=== PATIENT | female | born 1975 | race Caucasian/White ===

== ENCOUNTER 2016-09-06 08:07 | Emergency (ER) | payer OTHER, SELFPAY ==
[~2016-09-06] VITALS: Ht 167.6 cm; Wt 81.8 kg
[2016-09-06] MEDS ORDERED: LEVO75TA5 PO (08:56)
[2016-09-06] MEDS ORDERED: SODIUM CHLORIDE FLUSH 10ML SYR IVF ONE (09:30)
[2016-09-06] MEDS ORDERED: METOCLOPRAMIDE 5 MG/ML, 2ML IVPush ONE (09:30)
[2016-09-06] MEDS ORDERED: SODIUM CHLORIDE 0.9% 1,000ML IVBOLUS ONE (09:30)
[2016-09-06] MEDS ORDERED: DIPHENHYDRAMINE 50 MG/ML, 1ML IVPush ONE (09:30)
[2016-09-06 09:40] LABS: BLOOD UREA NITROGEN 15 mg/dL (7-18)
[2016-09-06] MEDS ORDERED: DIPHENHYDRAMINE 50 MG/ML, 1ML ONE (09:43)
[2016-09-06] MEDS ORDERED: METOCLOPRAMIDE 5 MG/ML, 2ML ONE (09:43)
[2016-09-06 11:43] VITALS: BP 124/73
== END 2016-09-06 11:46 | disposition home or self-care (01) ==
LOC: ED 11:09
DX: R51 Headache (principal); R11.0 Nausea; H53.149 Visual discomfort, unspecified
CPT/HCPCS: 36415; 70450; 80048; 82040; 85025; 93005; 96361; 96374; 96375; 99285; J1200; J2765; J7030

== ENCOUNTER 2017-04-05 20:04 | Emergency (ER) | payer OTHER, SELFPAY ==
[~2017-04-05] VITALS: Ht 162.6 cm; Wt 96.0 kg
[~2017-04-05 20:04] MED LIST: LEVO75TA5 PO
[2017-04-05] MEDS ORDERED: SODIUM CHLORIDE FLUSH 10ML SYR IVF ONE (20:30)
[2017-04-05] MEDS ORDERED: SODIUM CHLORIDE 0.9% 1,000ML IVBOLUS ONE (20:30)
[2017-04-05 20:39] LABS: HEMATOCRIT 42.3 % (34.6-47.8); HEMOGLOBIN 13.9 g/dL (11.7-16.4); WHITE BLOOD COUNT 11.3 x10^3/uL (3.4-10)
[2017-04-05 20:53] LABS: ASPARTATE AMINO TRANSFERASE 23 U/L (15-37); BLOOD UREA NITROGEN 27 mg/dL (7-18)
[2017-04-05] MEDS ORDERED: PROCHLORPERAZINE 5 MG/ML, 2ML ONE (21:28)
[2017-04-05] MEDS ORDERED: KETOROLAC 30 MG/1 ML ONE (21:28)
[2017-04-05] MEDS ORDERED: DIPHENHYDRAMINE 50 MG/ML, 1ML ONE (21:28)
[2017-04-05] MEDS ORDERED: KETOROLAC 30 MG/1 ML IVPush ONE (21:30)
[2017-04-05] MEDS ORDERED: DIPHENHYDRAMINE 50 MG/ML, 1ML IVPush ONE (21:30)
[2017-04-05] MEDS ORDERED: PROCHLORPERAZINE 5 MG/ML, 2ML IVPush ONE (21:30)
[2017-04-05 22:08] LABS: PATH.CAST-FLAG NOT PRESENT; SPERM-FLAG NOT PRESENT; SRC-FLAG NOT PRESENT; XTAL-FLAG NOT PRESENT; YLC-FLAG NOT PRESENT
[2017-04-05] MEDS ORDERED: PHENAZOPYRIDINE 200 MG TABLET PO ONE (22:30)
[2017-04-05] MEDS ORDERED: NITROFURANTOIN (MACROBID) 100 MG CAPSULE PO ONE (22:30)
[2017-04-05] MEDS ORDERED: NITROFURANTOIN (MACROBID) 100 MG CAPSULE ONE (22:36)
[2017-04-05] MEDS ORDERED: PHENAZOPYRIDINE 200 MG TABLET ONE (22:36)
[2017-04-05 23:31] VITALS: BP 133/67
== END 2017-04-05 23:33 | disposition home or self-care (01) ==
LOC: ED 23:30
DX: G43.911 Migraine, unspecified, intractable, with status migrainosus (principal); N30.00 Acute cystitis without hematuria; S09.90XA Unspecified injury of head, initial encounter; F17.210 Nicotine dependence, cigarettes, uncomplicated; X58.XXXA Exposure to other specified factors, initial encounter; Y93.89 Activity, other specified; Y92.89 Other specified places as the place of occurrence of the external cause; Y99.9 Unspecified external cause status
CPT/HCPCS: 36415; 70450; 80053; 81001; 84703; 85025; 87077; 87086; 87186; 93005; 96361; 96374; 96375; 99285; J0780; J1200; J1885; J7030

== ENCOUNTER 2017-04-18 20:46 | Emergency (ER) | payer MEDICAID, OTHER ==
[~2017-04-18] VITALS: Ht 162.6 cm; Wt 104.6 kg
[2017-04-18 20:48] VITALS: BP 126/89
== END 2017-04-18 23:01 | disposition left against medical advice (07) ==
LOC: ED 22:55
DX: G43.909 Migraine, unspecified, not intractable, without status migrainosus (principal); R50.9 Fever, unspecified

== ENCOUNTER 2017-10-21 07:09 | Emergency (ER) | payer MEDICAID ==
[~2017-10-21] VITALS: Ht 162.6 cm; Wt 109.9 kg
[2017-10-21 07:39] VITALS: BP 183/97
== END 2017-10-21 08:03 | disposition home or self-care (01) ==
LOC: ED 07:52
DX: S70.371A Other superficial bite of right thigh, initial encounter (principal); G43.909 Migraine, unspecified, not intractable, without status migrainosus; W55.01XA Bitten by cat, initial encounter; Y93.89 Activity, other specified; Y92.89 Other specified places as the place of occurrence of the external cause; Y99.8 Other external cause status
CPT/HCPCS: 99283

== ENCOUNTER 2018-03-13 14:12 | Emergency (ER) | payer MEDICAID ==
[~2018-03-13] VITALS: Ht 162.6 cm; Wt 120.0 kg
[2018-03-13 14:30] VITALS: BP 176/88
[2018-03-13] MEDS ORDERED: DEXAMETHASONE 4 MG/ML, 1ML ONE (14:44)
[2018-03-13] MEDS ORDERED: DEXAMETHASONE 4 MG/ML, 1ML PO ONE (15:00)
== END 2018-03-13 15:22 | disposition home or self-care (01) ==
LOC: ED 15:16
DX: J02.0 Streptococcal pharyngitis (principal); B95.5 Unspecified streptococcus as the cause of diseases classified elsewhere
CPT/HCPCS: 99283; J1100

== ENCOUNTER 2018-05-20 14:11 | Observation (INO) | payer MEDICAID ==
[~2018-05-20] VITALS: Ht 165.1 cm; Wt 127.9 kg
[~2018-05-20 14:11] MED LIST changes: +ALPR1TAB2 PO; +DIVA125T2 PO; +LITH150C PO
[2018-05-20 14:55] LABS: BASOPHILS # (AUTO) 0.05 x10^3/uL (0-0.1); BASOPHILS % (AUTO) 0 % (0-1); EOSINOPHILS # (AUTO) 0.86 x10^3/uL (0-0.4); EOSINOPHILS % (AUTO) 6 % (1-7); LYMPHOCYTES # (AUTO) 1.98 x10^3/uL (1-3.4); LYMPHOCYTES % (AUTO) 15 % (22-44); MD NO; MEAN CORPUSCULAR HEMOGLOBIN 30.7 pg (27.0-34.8); MEAN CORPUSCULAR HGB CONC 33.1 g/dL (32.4-35.8); MEAN CORPUSCULAR VOLUME 92.8 fL (80-100); MEAN PLATELET VOLUME 8.6 fL (7.4-10.4); MONOCYTES # (AUTO) 0.73 x10^3/uL (0.2-0.8); MONOCYTES % (AUTO) 5 % (2-9); NEUTROPHILS # (AUTO) 9.87 x10^3/uL (1.8-6.8); NEUTROPHILS % (AUTO) 73 % (42-75); PLATELET COUNT 263 x10^3/uL (130-400); RED BLOOD COUNT 4.71 x10^6/uL (3.82-5.3); RED CELL DISTRIBUTION WIDTH 15.2 % (9.6-15.2)
[2018-05-20 15:06] LABS: ALBUMIN 3.3 g/dL (3.4-5.0); ANION GAP 5 mmol/L (5-15); CALCIUM 9.2 mg/dL (8.5-10.1); CHLORIDE 109 mmol/L (98-107)
[2018-05-20 15:11] LABS: ALANINE AMINOTRANSFERASE 18 U/L (12-78); ALKALINE PHOSPHATASE 108 U/L (45-117); BILIRUBIN,TOTAL 0.5 mg/dL (0.2-1.0); CREATININE 1.45 mg/dL (0.55-1.02)
[2018-05-20] MEDS ORDERED: KETOROLAC 30 MG/1 ML IM ONE (17:30)
[2018-05-20] MEDS ORDERED: HYDROcodone/APAP 5/325 TABLET PO ONE (17:30)
[2018-05-20] MEDS ORDERED: KETOROLAC 30 MG/1 ML ONE (17:44)
[2018-05-20] MEDS ORDERED: HYDROcodone/APAP 5/325 TABLET ONE (17:44)
--- NOTE | 2018-05-20 18:05 | NUR ---
pt back from ct. pt medicated per jun. urine sent to lab.
[2018-05-20 18:07] LABS: MICROSCOPIC AUTO
[2018-05-20 18:11] LABS: CULTURE INDICATED? YES
--- NOTE | 2018-05-20 19:00 | NUR ---
received report from MANJULA Angel.
[2018-05-20] MEDS ORDERED: HYDROmorphone 2 MG/ML, 1ML ONE (19:11)
[2018-05-20] MEDS ORDERED: MIDAZOLAM 1 MG/ML, 2ML ONE (19:16)
[2018-05-20] MEDS ORDERED: FENTANYL PF 250 MCG/5ML ONE (19:16)
[2018-05-20 19:21] LABS: MICROSCOPIC AUTO
[2018-05-20 19:22] LABS: CULTURE INDICATED? YES
[2018-05-20] MEDS ORDERED: HYDROmorphone 2 MG/ML, 1ML IVPush PRN ×2 (19:30→20:30)
--- NOTE | 2018-05-20 19:30 | NUR ---
PT MEDICATED PER JUN. IV ACCESS ESTABLISHED.
--- NOTE | 2018-05-20 19:50 | NUR ---
REPORT OF PT TO MANJULA DAY. ALL QUESTIONS ANSWERED.
--- NOTE | 2018-05-20 19:53 | NUR ---
PT CAME AND TAKEN BY OR TECH. REPORT GIVEN TO [employer] ANALYSTMANJULA DAY. ALL QUESTIONS ANSWERED. PT BEING DEPARTED IN SYSTEM TRANSFER TO OR.
[2018-05-20] MEDS ORDERED: DEXAMETHASONE 4 MG/ML, 1ML ONE (19:57)
[2018-05-20] MEDS ORDERED: CIPROFLOXACIN 400MG/200ML PMX ONE (19:57)
[2018-05-20] MEDS ORDERED: SUGAMMADEX 200 MG/2 ML IVPush ONE (19:57)
[2018-05-20] MEDS ORDERED: PROPOFOL 10 MG/ML, 20ML ONE (19:57)
[2018-05-20] MEDS ORDERED: ROCURONIUM 10MG/ML,5ML ONE (19:57)
[2018-05-20] MEDS ORDERED: ONDANSETRON 2MG/ML, 2ML ONE (19:57)
[2018-05-20] MEDS ORDERED: OMNIPAQUE 350 MG/ML, 50 ML BOTTLE ONE (20:00)
[2018-05-20] MEDS ORDERED: morphine SULFATE 10 MG/ML, 1ML IVPush PRN (20:30)
[2018-05-20] MEDS ORDERED: ONDANSETRON 2MG/ML, 2ML IVPush PRN ×2 (20:30)
[2018-05-20] MEDS ORDERED: CEFTRIAXONE PMX 2GM/50ML 50 ML IV SCH (20:30)
[2018-05-20] MEDS ORDERED: CEFTRIAXONE PMX 1GM/50ML 50 ML IV SCH (20:30)
[2018-05-20] MEDS ORDERED: LABETALOL 5MG/ML, 20ML IVPush PRN (20:30)
[2018-05-20] MEDS ORDERED: ACETAMINOPHEN 325 MG TABLET PO PRN (20:30)
[2018-05-20] MEDS ORDERED: ONDANSETRON ODT 4 MG PO PRN (20:30)
[2018-05-20] MEDS ORDERED: DOCUSATE 100 MG CAPSULE PO PRN (20:30)
[2018-05-20] MEDS ORDERED: DIVALPROEX 500 MG TAB.ER.24H PO SCH (21:00)
[2018-05-20] MEDS ORDERED: HYDROcodone/APAP 7.5-325MG/15ML UDC ONE (21:23)
[2018-05-20] MEDS: HYDROcodone/APAP 5/325 TABLET PO PRN (21:24)
[2018-05-20 21:45] VITALS: BP 134/76
[2018-05-20] MEDS: KETOROLAC 30 MG/1 ML IVPush SCH (22:35)
[2018-05-20] MEDS: NS + 20MEQ KCL 1,000 ML IV SCH (22:35)
[2018-05-21 00:25] VITALS: BP 120/52
[2018-05-21 04:00] VITALS: BP 89/42
[2018-05-21] MEDS: KETOROLAC 30 MG/1 ML IVPush SCH ×2 (04:40→13:28)
[2018-05-21 04:59] LABS: BASOPHILS # (AUTO) 0.04 x10^3/uL (0-0.1); BASOPHILS % (AUTO) 0 % (0-1); EOSINOPHILS % (AUTO) 0 % (1-7); LYMPHOCYTES # (AUTO) 0.86 x10^3/uL (1-3.4); LYMPHOCYTES % (AUTO) 7 % (22-44); MD NO; MEAN CORPUSCULAR HGB CONC 33.5 g/dL (32.4-35.8); MEAN CORPUSCULAR VOLUME 92.7 fL (80-100); MEAN PLATELET VOLUME 9.2 fL (7.4-10.4); MONOCYTES # (AUTO) 0.08 x10^3/uL (0.2-0.8); MONOCYTES % (AUTO) 1 % (2-9); NEUTROPHILS # (AUTO) 11.61 x10^3/uL (1.8-6.8); NEUTROPHILS % (AUTO) 92 % (42-75); PLATELET COUNT 241 x10^3/uL (130-400); RED BLOOD COUNT 4.24 x10^6/uL (3.82-5.3); RED CELL DISTRIBUTION WIDTH 15.1 % (9.6-15.2)
[2018-05-21 05:11] LABS: ANION GAP 4 mmol/L (5-15); CALCIUM 8.2 mg/dL (8.5-10.1); CHLORIDE 112 mmol/L (98-107); CREATININE 1.46 mg/dL (0.55-1.02)
[2018-05-21] MEDS: NS + 20MEQ KCL 1,000 ML IV SCH (05:31)
[2018-05-21] MEDS ORDERED: LEVOTHYROXINE 75 MCG TABLET PO SCH (06:00)
[2018-05-21 07:33] VITALS: BP 101/60
[2018-05-21] MEDS: HYDROcodone/APAP 5/325 TABLET PO PRN ×2 (07:55→13:29)
[2018-05-21] MEDS ORDERED: CIPR500T8 PO (11:22)
[2018-05-21 13:11] VITALS: BP 108/67
[2018-05-21] MEDS ORDERED: CEFTRIAXONE PMX 1GM/50ML 50 ML IV SCH (20:30)
== END 2018-05-21 14:35 | disposition home or self-care (01) ==
LOC: OR 19:27 → EDIP 20:13 → 4NOR 21:30 → DCLOUNGE 05-21 14:29
PROVIDERS: ADMIT Family Medicine; ATTEND Family Medicine
DX: N20.2 Calculus of kidney with calculus of ureter (principal); E03.9 Hypothyroidism, unspecified; F17.210 Nicotine dependence, cigarettes, uncomplicated; F31.9 Bipolar disorder, unspecified; I10 Essential (primary) hypertension; N13.6 Pyonephrosis; Z87.442 Personal history of urinary calculi; Z90.710 Acquired absence of both cervix and uterus; Z91.19 Patient's noncompliance with other medical treatment and regimen
CPT/HCPCS: 36415; 52332; 71046; 74176; 74420; 80048; 80053; 81001; 83880; 85025; 87086; 93005; 96365; 96372; 96375; 96376; C2617; G0378; J0696; J0744; J1100; J1170; J1885; J2250; J2405; J2704; J3010; J3480; Q9967

== ENCOUNTER 2018-06-05 20:53 | Emergency (ER) | payer MEDICAID ==
[~2018-06-05] VITALS: Ht 162.6 cm; Wt 125.8 kg
[~2018-06-05 20:53] MED LIST changes: +CIPR500T8 PO
--- NOTE | 2018-06-05 21:18 | NUR ---
[id number]
[2018-06-05] MEDS ORDERED: ONDANSETRON ODT 4 MG PO ONE (23:00)
[2018-06-06 00:22] LABS: BASOPHILS # (AUTO) 0.08 x10^3/uL (0-0.1); BASOPHILS % (AUTO) 1 % (0-1); EOSINOPHILS # (AUTO) 0.48 x10^3/uL (0-0.4); EOSINOPHILS % (AUTO) 5 % (1-7); LYMPHOCYTES % (AUTO) 21 % (22-44); MD NO; MEAN CORPUSCULAR HEMOGLOBIN 31.1 pg (27.0-34.8); MEAN CORPUSCULAR HGB CONC 33.1 g/dL (32.4-35.8); MEAN PLATELET VOLUME 8.9 fL (7.4-10.4); MONOCYTES # (AUTO) 0.59 x10^3/uL (0.2-0.8); MONOCYTES % (AUTO) 6 % (2-9); NEUTROPHILS # (AUTO) 7.29 x10^3/uL (1.8-6.8); NEUTROPHILS % (AUTO) 69 % (42-75); PLATELET COUNT 280 x10^3/uL (130-400); RED BLOOD COUNT 4.75 x10^6/uL (3.82-5.3); RED CELL DISTRIBUTION WIDTH 15.1 % (9.6-15.2)
[2018-06-06 00:33] LABS: ALANINE AMINOTRANSFERASE 20 U/L (12-78); ALBUMIN 3.8 g/dL (3.4-5.0); ANION GAP 1 mmol/L (5-15); CALCIUM 8.7 mg/dL (8.5-10.1); CHLORIDE 112 mmol/L (98-107); CREATININE 1.46 mg/dL (0.55-1.02)
[2018-06-06 00:36] LABS: ALKALINE PHOSPHATASE 102 U/L (45-117); BILIRUBIN,TOTAL 0.4 mg/dL (0.2-1.0); TOTAL PROTEIN 7.3 g/dL (6.4-8.2)
--- NOTE | 2018-06-06 03:28 | NUR ---
TO ROOM 13 FROM LOBBY
[2018-06-06 03:44] LABS: HCG UR SG 1.014 (1.003-1.030); MICROSCOPIC AUTO
[2018-06-06] MEDS ORDERED: ONDANSETRON ODT 4 MG ONE (03:50)
[2018-06-06] MEDS ORDERED: HYDROcodone/APAP 5/325 TABLET PO ONE (04:00)
[2018-06-06] MEDS ORDERED: HYDROcodone/APAP 5/325 TABLET ONE (04:00)
[2018-06-06 04:01] LABS: CULTURE INDICATED? YES
[2018-06-06 04:11] VITALS: BP 145/85
[2018-06-06] MEDS ORDERED: CEFDINIR 300 MG CAPSULE ONE ×2 (04:36→04:50)
--- NOTE | 2018-06-06 04:54 | NUR ---
Patient/Caregiver given discharge instructions and they have confirmed that they understand the instructions. Patient ambulatory with steady gait.
[2018-06-06] MEDS ORDERED: CEFDINIR 300 MG CAPSULE PO SCH (09:00)
== END 2018-06-06 04:56 | disposition home or self-care (01) ==
LOC: ED 23:59
DX: N30.01 Acute cystitis with hematuria (principal); Z90.710 Acquired absence of both cervix and uterus; F17.200 Nicotine dependence, unspecified, uncomplicated; G43.909 Migraine, unspecified, not intractable, without status migrainosus; I10 Essential (primary) hypertension
CPT/HCPCS: 36415; 76770; 80053; 81001; 81025; 83605; 85025; 87040; 87086; 99284; Q0162

== ENCOUNTER 2019-05-10 11:56 | Emergency (ER) | payer MEDICAID ==
[~2019-05-10] VITALS: Ht 162.6 cm; Wt 100.0 kg
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
--- NOTE | 2019-05-10 12:35 | NUR ---
KARLO for SW to consult on pt per dr desouza's request.
[2019-05-10] MEDS ORDERED: METOCLOPRAMIDE 5 MG/ML, 2ML IM PRN (13:00)
[2019-05-10] MEDS ORDERED: METOCLOPRAMIDE 5 MG/ML, 2ML ONE (13:05)
[2019-05-10 13:11] VITALS: BP 118/84
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
--- NOTE | 2019-05-10 13:21 | NUR ---
TASK RN: BEDSIDE REPORT RECEIVED FROM MANJULA RASMUSSEN. PER PT REQUEST, PT WANTS PRIVACY.
--- NOTE | 2019-05-10 14:30 | NUR ---
[facility] ARRIVED AND PT WAS GIVEN PAPERS TO FILE A REPORT. PT REFUSING AT THIS TIME.
[2019-05-10] MEDS ORDERED: AZITHROMYCIN 500 MG TABLET PO ONE (15:00)
[2019-05-10] MEDS ORDERED: CEFTRIAXONE 250 MG IM ONE (15:00)
[2019-05-10] MEDS ORDERED: LIDOCAINE-MPF 1%, 2ML ONE (15:12)
[2019-05-10] MEDS ORDERED: AZITHROMYCIN 500 MG TABLET ONE (15:12)
[2019-05-10] MEDS ORDERED: CEFTRIAXONE 1,000 MG ONE (15:13)
--- NOTE | 2019-05-10 15:30 | NUR ---
PT MEDICATED PER MAR, PT AGITATED AT THIS TIME. STATES SHE STILL HAS A MORALES, CT NEGATIVE. OK TO PROCEED WITH DC
== END 2019-05-10 16:15 | disposition home or self-care (01) ==
LOC: ED 14:15
DX: T76.21XA Adult sexual abuse, suspected, initial encounter (principal); R51 Headache; I10 Essential (primary) hypertension; F17.200 Nicotine dependence, unspecified, uncomplicated; H53.8 Other visual disturbances
CPT/HCPCS: 70450; 96372; 99284; J0696; J2765

== ENCOUNTER 2019-10-24 18:03 | Emergency (ER) | payer MEDICAID ==
[~2019-10-24] VITALS: Ht 162.6 cm; Wt 114.9 kg
[2019-10-24] MEDS ORDERED: DIPHENHYDRAMINE 50 MG/ML, 1ML IVPush ONE (18:30)
[2019-10-24] MEDS ORDERED: PROCHLORPERAZINE 5 MG/ML, 2ML IVPush ONE (18:30)
[2019-10-24] MEDS ORDERED: SODIUM CHLORIDE FLUSH 10ML SYR IVF ONE (18:30)
--- NOTE | 2019-10-24 18:30 | NUR ---
EKG IN TRIAGE
[2019-10-24] MEDS ORDERED: LABETALOL 5MG/ML, 20ML IVPush ONE (19:00)
--- NOTE | 2019-10-24 19:00 | NUR ---
pt to room 7 with a steady gait. pt states 2 days of antony, dizziness, upper midline abd pain described as pressure that radiates to mid back. pedal pulses strong on left and weak on right. made aware of findings
[2019-10-24 19:07] LABS: BASOPHILS # (AUTO) 0.02 x10^3/uL (0-0.1); BASOPHILS % (AUTO) 0 % (0-1); EOSINOPHILS # (AUTO) 0.34 x10^3/uL (0-0.4); EOSINOPHILS % (AUTO) 4 % (1-7); LYMPHOCYTES # (AUTO) 1.63 x10^3/uL (1-3.4); LYMPHOCYTES % (AUTO) 20 % (22-44); MD NO; MEAN CORPUSCULAR HEMOGLOBIN 31.5 pg (27.0-34.8); MEAN CORPUSCULAR HGB CONC 33.1 g/dL (32.4-35.8); MEAN CORPUSCULAR VOLUME 95.1 fL (80-100); MEAN PLATELET VOLUME 8.8 fL (7.4-10.4); MONOCYTES # (AUTO) 0.62 x10^3/uL (0.2-0.8); MONOCYTES % (AUTO) 8 % (2-9); NEUTROPHILS # (AUTO) 5.72 x10^3/uL (1.8-6.8); NEUTROPHILS % (AUTO) 69 % (42-75); PLATELET COUNT 252 x10^3/uL (130-400); RED BLOOD COUNT 4.67 x10^6/uL (3.82-5.3)
[2019-10-24] MEDS ORDERED: LABETALOL 5MG/ML, 20ML ONE (19:08)
--- NOTE | 2019-10-24 19:14 | NUR ---
poc to admin labetalol per order. reassess bp and pain once bp is lowered and abdominal ct with contrast.
--- NOTE | 2019-10-24 19:15 | NUR ---
REPORT FROM MANJULA SCALES. PT LAYING SUPINE IN [facility]. DISCUSS WITH ERP REGARDING PAIN MEDICATIONS. TO HOLD MEDS UNTIL IMPROVEMENT IN BP NOTED.
[2019-10-24 19:17] LABS: ALANINE AMINOTRANSFERASE 25 U/L (12-78); ALBUMIN 3.8 g/dL (3.4-5.0); ANION GAP 5 mmol/L (5-15); CALCIUM 9.2 mg/dL (8.5-10.1); CHLORIDE 112 mmol/L (98-107); CREATININE 1.14 mg/dL (0.55-1.02)
[2019-10-24 19:24] LABS: ALKALINE PHOSPHATASE 115 U/L (45-117); BILIRUBIN, DIRECT < 0.1 mg/dL (0.1-0.2); BILIRUBIN,INDIRECT 0.1 mg/dL (0.0-2.0); BILIRUBIN,TOTAL 0.2 mg/dL (0.2-1.0)
[2019-10-24] MEDS ORDERED: MAALOX/HYOSCYAMINE/LIDOCAINE 45 ML BTL PO ONE (20:00)
[2019-10-24] MEDS ORDERED: PROCHLORPERAZINE 5 MG/ML, 2ML ONE (20:20)
[2019-10-24] MEDS ORDERED: DIPHENHYDRAMINE 50 MG/ML, 1ML ONE (20:20)
--- NOTE | 2019-10-24 20:23 | NUR ---
PT MEDICATED PER EMAR FOR MORALES. PT UP TO RESTROOM TO PROVIDE UA
[2019-10-24 20:29] VITALS: BP 156/95
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
[2019-10-24 20:53] LABS: MICROSCOPIC NOT IND
--- NOTE | 2019-10-24 21:41 | NUR ---
PT RESTING IN GURNEY WITH EYES CLOSED. EASILY ARROUSABLE TO VOICE AND REPORTS IMPROVED MORALES. PT CONTINUES TO REFUSE VS MONITORING. DC EDUCATION PROVIDED, PT DEMONSTRATES UNDERSTANDING. PT AMBULATED STEADILY TO DC WITH RN AND SO. SO TO TRANSPORT PT HOME.
[2019-10-24] MEDS ORDERED: OMNIPAQUE 350 MG/ML, 100ML BOTTLE ONE (23:18)
== END 2019-10-24 21:43 | disposition home or self-care (01) ==
LOC: ED 19:26
DX: G89.29 Other chronic pain (principal); R10.9 Unspecified abdominal pain; R51 Headache; R10.13 Epigastric pain; R11.2 Nausea with vomiting, unspecified; F17.200 Nicotine dependence, unspecified, uncomplicated; I10 Essential (primary) hypertension; Z90.710 Acquired absence of both cervix and uterus
CPT/HCPCS: 36415; 74177; 80048; 80076; 81003; 82040; 83690; 84703; 85025; 93005; 96374; 96375; 99285; J0780; J1200; Q9967

== ENCOUNTER 2019-11-13 20:36 | Emergency (ER) | payer MEDICAID ==
[~2019-11-13] VITALS: Ht 162.6 cm; Wt 119.1 kg
--- NOTE | 2019-11-13 22:50 | NUR ---
CITY MAGISTRATE: PT. TO ROOM FROM LOBBY AT THIS TIME.
[2019-11-13 23:01] LABS: ALANINE AMINOTRANSFERASE 19 U/L (12-78); ALBUMIN 3.8 g/dL (3.4-5.0); ANION GAP 8 mmol/L (5-15); CALCIUM 8.6 mg/dL (8.5-10.1); CHLORIDE 109 mmol/L (98-107); CREATININE 1.12 mg/dL (0.55-1.02)
[2019-11-13 23:03] LABS: ALKALINE PHOSPHATASE 99 U/L (45-117); BILIRUBIN,TOTAL 0.4 mg/dL (0.2-1.0); TOTAL PROTEIN 7.1 g/dL (6.4-8.2)
[2019-11-13 23:04] LABS: BASOPHILS # (AUTO) 0.06 x10^3/uL (0-0.1); BASOPHILS % (AUTO) 1 % (0-1); EOSINOPHILS # (AUTO) 0.41 x10^3/uL (0-0.4); EOSINOPHILS % (AUTO) 4 % (1-7); LYMPHOCYTES # (AUTO) 2.67 x10^3/uL (1-3.4); LYMPHOCYTES % (AUTO) 28 % (22-44); MD NO; MEAN CORPUSCULAR HEMOGLOBIN 31.6 pg (27.0-34.8); MEAN PLATELET VOLUME 9.3 fL (7.4-10.4); MONOCYTES # (AUTO) 0.72 x10^3/uL (0.2-0.8); MONOCYTES % (AUTO) 8 % (2-9); NEUTROPHILS # (AUTO) 5.76 x10^3/uL (1.8-6.8); NEUTROPHILS % (AUTO) 60 % (42-75); PLATELET COUNT 221 x10^3/uL (130-400); RED BLOOD COUNT 4.75 x10^6/uL (3.82-5.3); RED CELL DISTRIBUTION WIDTH 14.1 % (9.6-15.2)
--- NOTE | 2019-11-13 23:10 | NUR ---
THIS IS A 44Y F THAT COMES IN TONIGHT FOR RUQ PAIN STARTING TODAY. PT STS SHE WAS ASLEEP AND WAS AWAKENED BY SUDDEN SHARP PAIN. PT DENIES HX OF THIS PAIN BUT REPORTS CHRONIC KIDNEY STONES. PT ON FLO AT BEDSIDE NO NEEDS AT THIS TIME. PROVIDER AT BEDSIDE FOR ASSESSMENT.
[2019-11-13 23:11] VITALS: BP 141/69
--- NOTE | 2019-11-13 23:24 | NUR ---
URINE WALKED TO LAB PT RESTING ON GURNEY DENIES NEED FOR PAIN MEDICATION
[2019-11-13 23:27] LABS: MICROSCOPIC NOT IND
--- NOTE | 2019-11-14 00:56 | NUR ---
PT REFUSING CT AND IV ERP AWARE
== END 2019-11-14 01:26 | disposition home or self-care (01) ==
LOC: ED 11-14 00:02
DX: R10.11 Right upper quadrant pain (principal); R10.13 Epigastric pain; R19.7 Diarrhea, unspecified; I10 Essential (primary) hypertension; G43.909 Migraine, unspecified, not intractable, without status migrainosus
CPT/HCPCS: 36415; 76700; 80053; 81003; 83690; 85025; 99284